=== PATIENT | female | born 1950 | race Caucasian/White ===

== ENCOUNTER 2018-11-29 13:21 | Inpatient (IN) | payer MEDICARE, OTHER ==
[~2018-11-29] VITALS: Ht 162.6 cm; Wt 63.5 kg
[2018-11-29] MEDS ORDERED: ALPR0.5T8 PO (13:45)
[2018-11-29] MEDS ORDERED: ONDA4TAB11 PO (13:45)
[2018-11-29] MEDS ORDERED: FLUO20CA36 PO (13:45)
[2018-11-29 14:21] LABS: BASOPHILS # (AUTO) 0.2 K/uL (0.0-8.0); BASOPHILS % (AUTO) 2.9 % (0.0-2.0); HEMATOCRIT 38.8 % (31.2-41.9); HEMOGLOBIN 13.9 g/dL (10.9-14.3); LYMPHOCYTES % (AUTO) 13.1 % (20.5-51.5); MEAN CORPUSCULAR HEMOGLOBIN 31.4 uug (24.7-32.8); MEAN CORPUSCULAR HGB CONC 36 g/dL (32.3-35.6); MEAN CORPUSCULAR VOLUME 87.7 fL (75.5-95.3); MONOCYTES # (AUTO) 0.6 K/uL (2.0-10.0); NEUTROPHILS # (AUTO) 5.6 K/uL (1.8-8.9); PLATELET COUNT (AUTO) 375 K/uL (179-408); RED BLOOD CELL COUNT(AUTO) 4.42 MIL/uL (3.63-4.92); WHITE BLOOD COUNT (AUTO) 7.3 K/uL (3.8-11.8)
[2018-11-29 14:33] LABS: CARBON DIOXIDE 24 mmol/L (21-32); CHLORIDE 104 mmol/L (98-107); CREATININE 0.9 mg/dL (0.6-1.3); GLUCOSE 99 mg/dL (74-106); UREA NITROGEN, BLOOD 8 mg/dL (7-18)
[2018-11-29 14:38] LABS: ALANINE AMINOTRANSFERASE 49 U/L (14-59); ALKALINE PHOSPHATASE 78 U/L (50-136); ASPARTATE AMINOTRANSFERASE 20 U/L (15-37); BILIRUBIN,DIRECT 0.1 mg/dL (0.0-0.2); BILIRUBIN,TOTAL 0.3 mg/dL (0.2-1.0); TOTAL PROTEIN, SERUM 7.3 g/dL (6.4-8.2)
[2018-11-29 14:39] LABS: ETHANOL < 3 MG/DL (0-0)
[2018-11-29 14:40] LABS: ACETAMINOPHEN < 2.0 ug/mL (10-30)
[2018-11-29 14:46] LABS: THYROID STIMULATING HORMONE 1.658 mIU/mL (0.358-3.740)
[2018-11-29 15:22] LABS: *BILIRUBIN,URIN NEGATIVE (NEGATIVE); *BLOOD, URINE Trace-intact (NEGATIVE); *CLARITY,URINE CLEAR (CLEAR); *COLOR,URINE YELLOW (YELLOW); *KETONES,URINE NEGATIVE (NEGATIVE); *UROBILINOGEN,URINE 0.2 E.U./dl (NORMAL); LEUKOCYTE ESTERASE ,URINE NEGATIVE (NEGATIVE); NITRITE, URINE NEGATIVE (NEGATIVE); PH,URINE 8.5 (5.0-8.0); UGLUCOSE NEGATIVE (NEGATIVE)
[2018-11-29 15:27] LABS: BACTERIA,URINE NONE SEEN /HPF (NONE SEEN); RBC,URINE 0-3 /HPF (0-3); SQUAMOUS EPITHELIAL CELL,UR FEW /HPF (NONE SEEN); WBC,URINE 0-3 /HPF (0-3)
[2018-11-29 15:51] LABS: *AMPHETAMINE, URINE NEGATIVE (NEGATIVE); *BARBITURATE, URINE NEGATIVE (NEGATIVE); *CANNABINOID, URINE NEGATIVE (NEGATIVE); *COCCAINE, URINE NEGATIVE (NEGATIVE); *OPIATE, URINE NEGATIVE (NEGATIVE); *PHENCYCLIDINE SCREEN,URINE NEGATIVE (NEGATIVE)
[2018-11-29] MEDS ORDERED: LORAZEPAM 0.5 MG TABLET PO ONE (16:30)
[2018-11-29] MEDS ORDERED: LORAZEPAM 1 MG TABLET ONE (16:32)
[2018-11-29] MEDS ORDERED: LORA0.5T PO (16:53)
[2018-11-29 18:44] VITALS: BP 127/69
[2018-11-29 20:00] VITALS: BP 112/62
[2018-11-29] MEDS ORDERED: MAGNESIUM HYDROXIDE 30 ML LIQUID UDC PO PRN (20:00)
[2018-11-29] MEDS ORDERED: ACETAMINOPHEN 325 MG TABLET PO PRN (20:00)
[2018-11-29] MEDS ORDERED: MAG HYDROX/AL HYDROX/SIMETH 30 ML LIQUID UDC PO PRN (20:00)
[2018-11-29] MEDS ORDERED: TEMAZEPAM 7.5 MG CAPSULE PO PRN (20:00)
[2018-11-29] MEDS ORDERED: ONDANSETRON ODT 4 MG TAB.RAPDIS SL PRN (23:15)
[2018-11-30] MEDS: CLONAZEPAM 0.5 MG TABLET PO PRN ×2 (03:20→09:59)
[2018-11-30 11:50] VITALS: BP 123/68
[2018-11-30 16:02] VITALS: BP 127/65
[2018-11-30] MEDS: ESCITALOPRAM OXALATE 10 MG TABLET PO SCH (17:35)
[2018-11-30 19:00] VITALS: BP 105/64
[2018-11-30] MEDS: LORAZEPAM 1 MG TABLET PO PRN (21:39)
[2018-12-01 04:00] VITALS: BP 110/66
[2018-12-01] MEDS: ESCITALOPRAM OXALATE 10 MG TABLET PO SCH (08:19)
[2018-12-01] MEDS: LORAZEPAM 1 MG TABLET PO PRN ×2 (09:35→19:58)
[2018-12-01 11:51] VITALS: BP 120/70
[2018-12-01 16:23] VITALS: BP 124/71
[2018-12-01 20:00] VITALS: BP 118/67
[2018-12-02] MEDS: ESCITALOPRAM OXALATE 10 MG TABLET PO SCH (08:06)
[2018-12-02] MEDS: LORAZEPAM 1 MG TABLET PO PRN (11:08)
[2018-12-02 12:13] VITALS: BP 124/68
[2018-12-02 15:58] VITALS: BP 102/62
[2018-12-02 20:26] VITALS: BP 111/64
[2018-12-02] MEDS ORDERED: MIRTAZAPINE 15 MG TABLET PO SCH (21:00)
[2018-12-03 08:30] VITALS: BP 118/63
[2018-12-03] MEDS: LORAZEPAM 1 MG TABLET PO PRN (10:23)
[2018-12-03] MEDS ORDERED: MIRTAZAPINE 15 MG TABLET PO SCH (21:00)
== END 2018-12-03 16:55 | disposition home or self-care (01) | DRG 885 ==
LOC: ER 13:21 → GPSOV 18:11 → GPS 12-02 17:36
PROVIDERS: ADMIT Psychiatry & Neurology Psychiatry; ATTEND Nurse Practitioner Acute Care
DX: F33.2 Major depressive disorder, recurrent severe without psychotic features (principal); C50.912 Malignant neoplasm of unspecified site of left female breast; Z17.1 Estrogen receptor negative status [ER-]; Z81.8 Family history of other mental and behavioral disorders; F17.210 Nicotine dependence, cigarettes, uncomplicated; F41.1 Generalized anxiety disorder
CPT/HCPCS: 36415; 70030-TC; 71045; 80307; 84443; 85025; 85730; 87086; 93005; A4663; G0480; G0480-TC; Q0162